=== PATIENT | male | born 1995 | race Caucasian/White ===

== ENCOUNTER 2019-08-30 14:15 | Outpatient (CLI) | payer BC | END 2019-08-30 14:16 | disposition home or self-care (01) | LOC: CTENTCT 14:15 | PROVIDERS: ATTEND Student in an Organized Health Care Education/Training Program | DX: J34.2 Deviated nasal septum (principal) | CPT/HCPCS: 70486 ==

== ENCOUNTER 2022-02-01 07:17 | Day surgery (SDC) | payer OTHER ==
[2022-01-31 09:47] VITALS: BMI 25.7
[2022-02-01] MEDS ORDERED: AFRIN NASAL MIST 15 ML BOT ONE ×2 (08:06→08:48)
[2022-02-01] MEDS ORDERED: Lidocaine 1% MPF 2 ML VIAL ONE (08:21)
[2022-02-01] MEDS ORDERED: Lidocaine 1% w/Epinephrine 1:100K 20 ML VIAL ONE (08:48)
[2022-02-01] MEDS ORDERED: Bacitracin Zinc Ointment 30 gm TUBE ONE (08:48)
[2022-02-01] MEDS ORDERED: fentaNYL Citrate/PF 100 MCG/2 ML SYRINGE ONE (08:56)
[2022-02-01] MEDS ORDERED: PROPOFOL 200 MG/20 ML VIAL ONE (09:26)
[2022-02-01] MEDS ORDERED: Rocuronium Bromide 10 MG/ML (10ML VIAL) ONE (09:26)
[2022-02-01] MEDS ORDERED: Ondansetron PF 4 MG/2 ML Vial ONE (09:26)
[2022-02-01] MEDS ORDERED: Lidocaine 1% PF 5 ML VIAL ONE (09:26)
[2022-02-01] MEDS ORDERED: ePHEDrine 50 MG/ML VIAL ONE (09:26)
[2022-02-01] MEDS ORDERED: Dexamethasone 20 MG/5 ML VIAL ONE (09:26)
[2022-02-01] MEDS ORDERED: Fentanyl 100 MCG/2 ML VIAL ONE (12:12)
[2022-02-01] MEDS ORDERED: HYDROcodone/Acetaminophen 5/325 mg Tablet ONE (13:10)
== END 2022-02-01 13:35 | disposition home or self-care (01) ==
LOC: SDC 07:17
PROVIDERS: ATTEND Student in an Organized Health Care Education/Training Program
PROC: 09QK0ZZ Repair Nasal Mucosa and Soft Tissue, Open Approach (ICD-10-PCS; principal; 2022-02-01)
PROC: 09SM0ZZ Reposition Nasal Septum, Open Approach (ICD-10-PCS; principal; 2022-02-01)
PROC: 09BL0ZZ Excision of Nasal Turbinate, Open Approach (ICD-10-PCS; principal; 2022-02-01)
DX: J34.2 Deviated nasal septum (principal); J34.3 Hypertrophy of nasal turbinates; J34.89 Other specified disorders of nose and nasal sinuses; S02.2XXA Fracture of nasal bones, initial encounter for closed fracture; F17.290 Nicotine dependence, other tobacco product, uncomplicated
CPT/HCPCS: J1100; J2405; J2704; J3010; J3490

== ENCOUNTER 2022-03-11 09:26 | Outpatient (CLI) | payer OTHER | END 2022-03-11 09:27 | disposition home or self-care (01) | LOC: CT 09:26 | PROVIDERS: ATTEND Student in an Organized Health Care Education/Training Program | DX: J33.9 Nasal polyp, unspecified (principal) | CPT/HCPCS: 70486 ==